=== PATIENT | male | born 1955 | race Hispanic/Latino ===

== ENCOUNTER 2018-10-27 19:06 | Inpatient (IN) | payer BC ==
--- NOTE | 2018-10-27 19:25 | Emergency Department Report ---
Chief Complaint: Arrhythmia/Palpitations Stated Complaint: IRREGULAR HEART Time Seen by Provider: 10/27/18 19:20 - HPI History of Present Illness: Pt presents with Afib with RVR sent by [facility] denies any prior hx of Afib no CP (+) palpitations no SOB HR 123 EKG with sinus tach MSE screening note: Focused history performed Due to findings the following was ordered: labs, EKG
[2018-10-27 19:54] LABS: Basophils % (Auto) 0.6 % (0.0-1.8); Eosinophils # (Auto) 0.1 K/mm3 (0.0-0.4); Eosinophils % (Auto) 1.2 % (0.0-4.3); Hemoglobin 14.6 gm/dl (11.8-15.2); Lymphocytes # (Auto) 2.6 K/mm3 (1.2-5.4); Lymphocytes % (Auto) 33.4 % (13.4-35.0); Mean Corpuscular HGB Conc 35 % (32-34); Mean Corpuscular Volume 87 fl (84-94); Monocytes # (Auto) 0.5 K/mm3 (0.0-0.8); Monocytes % (Auto) 6.4 % (0.0-7.3); Platelet Count 281 K/mm3 (140-440); Red Blood Count 4.84 M/mm3 (3.65-5.03); Red Cell Distribution Width 13.6 % (13.2-15.2)
[2018-10-27 20:28] LABS: Alanine Aminotransferase 38 units/L (7-56); Albumin 4.3 g/dL (3.9-5); BUN/Creatinine Ratio 13; Blood Urea Nitrogen 10 mg/dL (9-20); Hemolysis Index 7
[2018-10-27] MEDS ORDERED: NACL 0.9% 500 ML 500 ML IV ONE (20:34)
--- NOTE | 2018-10-27 21:17 | Emergency Department Report ---
ED Palpitations HPI - General Chief Complaint: Arrhythmia/Palpitations Stated Complaint: IRREGULAR HEART Time Seen by Provider: 10/27/18 19:20 Source: patient Mode of arrival: Ambulatory Limitations: No Limitations - History of Present Illness Initial Comments: 63-year-old male with a past medical history of diabetes, hypertension, and plaque psoriasis presents to the hospitalist and the building construction teacher's office to be admitted for workup of new onset A. fib with RVR. Patient apparently went to his PMDs office for a checkup and medical refill and was noted to be in A. fib rate 165 (see ekg on chart and office notes). Patient denies any symptoms incl uding chest pain, shortness of breath, palpitations, fevers, or lightheadedness. Patient also denies history of PEs as DVT, calf tenderness, leg edema, or recent travel. PMD Dr. Bennett building construction teacher: Dr. Batista with [facility] - Related Data Allergies Allergy/AdvReac Type Severity Reaction Status Date / Time No Known Allergies Allergy Unverified 10/27/18 19:16 ED Review of Systems ROS: Stated complaint: IRREGULAR HEART Other details as noted in HPI Comment: All other systems reviewed and negative ED Past Medical Hx - Past Medical History Hx Hypertension: Yes Hx Diabetes: Yes (pre) Additional medical history: plaque psoriasis - Surgical History Past Surgical History?: No - Social History Smoking Status: Never Smoker Substance Use Type: None ED Physical Exam - General Limitations: No Limitations - Other Other exam information: General: No limitations, patient is alert in no acute distress Head exam: Atraumatic, normocephalic Eyes exam: Normal appearanc e ENT: Moist mucous membrane, normal oropharynx Neck exam: Normal inspection, full range of motion, no meningismus nontender Respiratory exam: Clear to auscultation bilateral, no wheezes, rales, crackles Cardiovascular: Mild tachycardia with regular rhythm Abdomen: Soft, nondistended, and nontender, with normal bowel sounds, no rebound, or guarding Extremity: Full range of motion normal inspection no deformity, no calf tenderness or edema Back: Normal Inspection, full range of motion, no tenderness Neurologic: Alert, oriented x3, cranial nerves intact, no motor or sensory deficit Psychiatric: normal affect, normal mood Skin: Warm, dry, intact ED Course Vital Signs 10/27/18 10/27/18 10/27/18 19:18 19:21 21:00 Temperature 98.1 F 98.1 F Pulse Rate 124 H 123 H 88 Respiratory 18 18 19 Rate Blood Pressure 139/89 139/89 121/68 Blood Pressure [Left] O2 Sat by Pulse 95 94 96 Oximetry 10/27/18 10/27/18 21:44 23:06 Temperature Pulse Rate 71 Respiratory 16 16 Rate Blood Pressure Blood Pressure 113/74 [Left] O2 Sat by Pulse 99 100 Oximetry - Reevaluation(s) Reevaluation #1: 10/27/18 23:28 hr improved below 100 after IVF repeat ekg pending to reassess rhythm pt informed of ct chest any suggestive of metastatic lung cancer. Reevaluation #2: 10/27/18 23:32 PT pmd paged x [address] result. will discuss with pmd if he calls back tonight. He does not admit. Hospitalist informed for admission ED Medical Decision Making - Lab Data Result diagrams: 10/27/18 19:41 10/27/18 19:41 Lab Results 10/27/18 10/27/18 10/27/18 Range/Units 19:41 19:41 19:41 WBC 7.8 (4.5-11.0) K/mm3 RBC 4.84 (3.65-5.03) M/mm3 Hgb 14.6 (11.8-15.2) gm/dl Hct 42.0 (35.5-45.6) % MCV 87 (84-94) fl MCH 30 (28-32) pg MCHC 35 H (32-34) % RDW 13.6 (13.2-15.2) % Plt Count 281 (140-440) K/mm3 Lymph % (Auto) 33.4 (13.4-35.0) % [place] % (Auto) 6.4 (0.0-7.3) % Eos % (Auto) 1.2 (0.0-4.3) % Baso % (Auto) 0.6 (0.0-1.8) % Lymph # 2.6 (1.2-5.4) K/mm3 [place] # 0.5 (0.0-0.8) K/mm3 Eos # 0.1 (0.0-0.4) K/mm3 Baso # 0.0 (0.0-0.1) K/mm3 Seg Neutrophils % 58.4 (40.0-70.0) % Seg Neutrophils # 4.6 (1.8-7.7) K/mm3 D-Dimer (0-234) ng/mlDDU Sodium 137 (137-145) mmol/L Potassium 4.1 (3.6-5.0) mmol/L Chloride 98.9 (98-107) mmol/L Carbon Dioxide 27 (22-30) mmol/L Anion Gap 15 mmol/L BUN 10 (9-20) mg/dL Creatinine 0.8 (0.8-1.5) mg/dL Estimated GFR > 60 ml/min BUN/Creatinine Ratio 13 % Glucose 209 H (75-100) mg/dL Calcium 9.0 (8.4-10.2) mg/dL Phosphorus 3.30 (2.5-4.5) mg/dL Magnesium 2.20 (1.7-2.3) mg/dL Total Bilirubin 0.90 (0.1-1.2) mg/dL AST 34 (5-40) units/L ALT 38 (7-56) units/L Alkaline Phosphatase 98 (35-129) units/L Troponin T < 0.010 (0.00-0.029) ng/mL NT-Pro-B Natriuret Pep (0-900) pg/mL Total Protein 7.4 (6.3-8.2) g/dL Albumin 4.3 (3.9-5) g/dL Albumin/Globulin Ratio 1.4 % TSH 1.280 (0.270-4.200) mlU/mL 10/27/18 10/27/18 Range/Units 19:41 19:41 WBC (4.5-11.0) K/mm3 RBC (3.65-5.03) M/mm3 Hgb (11.8-15.2) gm/dl Hct (35.5-45.6) % MCV (84-94) fl MCH (28-32) pg MCHC (32-34) % RDW (13.2-15.2) % Plt Count (140-440) K/mm3 Lymph % (Auto) (13.4-35.0) % [place] % (Auto) (0.0-7.3) % Eos % (Auto) (0.0-4.3) % Baso % (Auto) (0.0-1.8) % Lymph # (1.2-5.4) K/mm3 [place] # (0.0-0.8) K/mm3 Eos # (0.0-0.4) K/mm3 Baso # (0.0-0.1) K/mm3 Seg Neutrophils % (40.0-70.0) % Seg Neutrophils # (1.8-7.7) K/mm3 D-Dimer 429.54 H (0-234) ng/mlDDU Sodium (137-145) mmol/L Potassium (3.6-5.0) mmol/L Chloride (98-107) mmol/L Carbon Dioxide (22-30) mmol/L Anion Gap mmol/L BUN (9-20) mg/dL Creatinine (0.8-1.5) mg/dL Estimated GFR ml/min BUN/Creatinine Ratio % Glucose (75-100) mg/dL Calcium (8.4-10.2) mg/dL Phosphorus (2.5-4.5) mg/dL Magnesium (1.7-2.3) mg/dL Total Bilirubin (0.1-1.2) mg/dL AST (5-40) units/L ALT (7-56) units/L Alkaline Phosphatase (35-129) units/L Troponin T (0.00-0.029) ng/mL NT-Pro-B Natriuret Pep 72.97 (0-900) pg/mL Total Protein (6.3-8.2) g/dL Albumin (3.9-5) g/dL Albumin/Globulin Ratio % TSH (0.270-4.200) mlU/mL - EKG Data -: EKG Interpreted by Ok EKG shows normal: sinus rhythm, axis (qrs -32), QRS complexes (qrsd 96), ST-T waves (no stemi) Rate: tachycardia (115) - EKG Data When compared to previous EKG there are: other (office ekg afb rate 165) 10/27/18 23:40 repeat EKG shows sinus rhythm rate [address] elevation or T-wave inversions. - Radiology Data Radiology results: report reviewed PROCEDURE: CT ANGIOGRAM OF THE CHEST FOR PULMONARY EMBOLISM TECHNIQUE: Computerized axial tomographic angiography of the chest and pulmonary arteries was performed during the IV injection of iodinated nonionic contrast. The image data was postprocessed using maximum intensity projection (MIP) and 2- dimensional multiplanar reformatted (MPR) techniques. The examination is specifically tailored to the evaluation of the pulmonary arteries per clinical request. Automated exposure control, adjustment of mA and/or kV according to patient size, or iterative reconstruction dose optimization techniques were utilized. CPT G9637, 67572 HISTORY: Shortness of breath R06.02, chest pain unspecified R07.9 ,. Evaluate pulmonary embolus COMPARISONS: None . FINDINGS: Pulmonary out flow tract, right and left main pulmonary arteries and the approximal branches: Clear, no filling defects seen to suggest pulmonary embolus. Pericardium: No evidence of pericardial effusion. Thoracic aorta: No evidence of aneurysmal dilatation or dissection. Coronary arteries: Partially calcified indicating atherosclerotic disease. Mediastinum and hilar regions: There are a few noncalcified lymph nodes seen in the left hilum which appear moderately enlarged, the largest measures up to 2.5 x 2.0 cm suggesting metastatic disease to the left hilum. Lung Negron: There are 2 spiculated soft tissue masses in the left upper lobe medially. One measures 2.8 x 2.4 cm tightly applied to the left side of the upper mediastinum. This has spiculated margins and is noncalcified. This is seen on axial image 30 series 2. This is connected to a second soft tissue mass superior aspect of the left hilum measuring 2.0 x 2.0 cm seen on axial image 44 series 2. There are multiple small noncalcified peripheral nodular densities scattered in the right and left lungs measuring up to 1 cm in size suggesting metastatic disease. No effusions are identified. There is minimal dependent atelectasis. Mild to moderate emphysematous changes seen in the upper lung negron. Upper abdomen: Liver density is diffusely decreased consistent with fatty infiltration. There appear to be several masses in the left lobe of the liver adjacent to the right and left side of the falci form ligament. The largest measures 6.4 x 5.8 cm along the left side of the falciform ligament. 2 additional masses are seen on the right side of the falciform ligament, one measuring 4.8 cm greatest diameter and the other 2.6 cm and one located in the right lobe of the liver measuring approximately 2.1 cm. Metastatic disease to the liver is suspected. Other: No acute bone abnormalities are seen.. IMPRESSION: No evidence of pulmonary embolus. Spiculated soft tissue masses seen in the left upper lobe as well as left hilar adenopathy and masses in the liver as described. Multiple small peripheral noncalcified nodules seen scattered in both lungs as described suggesting additional metastasis to the right and left lungs. Primary malignancy in the lung is suspected with met astatic disease to left hilar lymph nodes and to the liver. Fatty infiltration of the liver. Atherosclerosis coronary arteries. - Medical Decision Making Patient presents to the ER with a regular rhythm and improved heart rate without any documented meds for rate control given prior to arrival. further improvement in rate with IVf Card consult ordered but not discussed with cardiology repeat ekg shows sinus rhythm rate 70 - Differential Diagnosis new A. fib, thyroid disease, anemia, dehydration, PE Critical Care Time: No Critical care attestation.: If time is entered above; I have spent that time in minutes in the direct care of this critically ill patient, excluding procedure time. ED Disposition Clinical Impression: Intermittent atrial fibrillation, Lung mass, Liver masses, Diabetes, HTN (hypertension), Plaque psoriasis Disposition: -09 OP ADMIT IP TO THIS HOSP Is pt being admited?: Yes Condition: Stable Time of Disposition: 23:32 (Dr Malhotra/hosp)
--- NOTE | 2018-10-27 23:19 | Cat Scan Report ---
PROCEDURE: CT ANGIOGRAM OF THE CHEST FOR PULMONARY EMBOLISM TECHNIQUE: Computerized axial tomographic angiography of the chest and pulmonary arteries was perfor med during the IV injection of iodinated nonionic contrast. The image data was postprocessed using ma ximum intensity projection (MIP) and 2-dimensional multiplanar reformatted (MPR) techniques. The exam ination is specifically tailored to the evaluation of the pulmonary arteries per clinical request. A utomated exposure control, adjustment of mA and/or kV according to patient size, or iterative reconst ruction dose optimization techniques were utilized. CPT G9637, 39113 HISTORY: Shortness of breath R06.02, chest pain unspecified R07.9 ,. Evaluate pulmonary embolus COMPARISONS: None . FINDINGS: Pulmonary out flow tract, right and left main pulmonary arteries and the approximal branches: Clear, no filling defects seen to suggest pulmonary embolus. Pericardium: No evidence of pericardial effusion. Thoracic aorta: No evidence of aneurysmal dilatation or dissection. Coronary arteries: Partially calcified indicating atherosclerotic disease. Mediastinum and hilar regions: There are a few noncalcified lymph nodes seen in the left hilum which appear moderately enlarged, the largest measures up to 2.5 x 2.0 cm suggesting metastatic disease to the left hilum. Lung Johnson: There are 2 spiculated soft tissue masses in the left upper lobe medially. One measures 2.8 x 2.4 cm tightly applied to the left side of the upper mediastinum. This has spiculated margins a nd is noncalcified. This is seen on axial image 30 series 2. This is connected to a second soft tissu e mass superior aspect of the left hilum measuring 2.0 x 2.0 cm seen on axial image 44 series 2. Ther e are multiple small noncalcified peripheral nodular densities scattered in the right and left lungs measuring up to 1 cm in size suggesting metastatic disease. No effusions are identified. There is min imal dependent atelectasis. Mild to moderate emphysematous changes seen in the upper lung johnson. Upper abdomen: Liver density is diffusely decreased consistent with fatty infiltration. There appear to be several masses in the left lobe of the liver adjacent to the right and left side of the falcif orm ligament. The largest measures 6.4 x 5.8 cm along the left side of the falciform ligament. 2 carroll tional masses are seen on the right side of the falciform ligament, one measuring 4.8 cm greatest ritu meter and the other 2.6 cm and one located in the right lobe of the liver measuring approximately 2.1 cm. Metastatic disease to the liver is suspected. Other: No acute bone abnormalities are seen.. IMPRESSION: No evidence of pulmonary embolus. Spiculated soft tissue masses seen in the left upper lobe as well as left hilar adenopathy and masses in the liver as described. Multiple small peripheral noncalcified nodules seen scattered in both nayana gs as described suggesting additional metastasis to the right and left lungs. Primary malignancy in t he lung is suspected with metastatic disease to left hilar lymph nodes and to the liver. Fatty infiltration of the liver. Atherosclerosis coronary arteries. This document is electronically signed by Richard Amaya MD., October 27 2018 11:17:04 PM ET
--- NOTE | 2018-10-27 23:53 | History and Physical Report ---
History of Present Illness Date of examination: 10/27/18 History of present illness: 63-year-old man with a history of hypertension, diabetes, psoriasis went to his care physician today for medication refill. The patient was found to be in A. fib with RVR and was then sent to the sort line office who sent him here to the emergency room for further evaluation. The patient has been asymptomatic. Patient is now in normal sinus rhythm. He denies weight loss or chest pain, palpitation Review of systems Constitutional: no weight loss, chills, fever Ears, eyes, nose, mouth and throat: no nasal congestion, no nasal discharge, no sinus pressure, no vision change, no red eye. Neck: No neck pain or rigidity. Cardiovascular: no palpitations, chest pain Respiratory: no cough, shortness of breath Gastrointestinal: no hematochezia, abdominal pain Genitourinary : no frequency , no hematuria Musculoskeletal: no joint swelling or muscle ache Integumentary: no rash, no pruritis Neurological: no parathesias, no focal weakness Endocrine: no cold or heat intolerance, no polyuria or polydipsia Hematologic/Lymphatic: no easy bruising, no easy bleeding, no gland swelling Allergic/Immunologic: no urticaria, no angioedema. PAST MEDICAL HISTORY:hypertension, diabetes, psoriasis PAST SURGICAL HISTORY: None SOCIAL HISTORY: Denies alcohol, drugs, quit tobacco 10 years ago, used to smoke 2 packs a day FAMILY HISTORY: Hypertension Medications and Allergies Allergies Allergy/AdvReac Type Severity Reaction Status Date / Time No Known Allergies Allergy Verified 10/28/18 00:03 Exam - Physical Exam Narrative exam: General Apperance: The patient lying in bed, breathing comfortable HEENT: Normocephalic, atraumatic. Pupils equally round and reactive to light, EOMI, no sclericterus or JVD or thyromegaly or nodule. , no carotid bruit, mucous membranes moist, no exudate or erythema Heart: S1-S2, regular is rhythm Lungs: Clear to auscultation bilaterally, breathing comfortable Abdomen: Positive bowel sounds, soft, nontender, nondistended, no organomegaly Extremities: No edema cyanosis clubbing Skin: no rash, nodule, warm and dry Neuro: cranial nerves 2-12 intact, speech is fluent, motor/sensory intact - Constitutional Vitals: Temp Pulse Resp BP Pulse Ox 98.1 F 71 16 113/74 100 04/15/19 19:21 10/27/18 23:06 10/27/18 23:06 10/27/18 23:06 10/27/18 23:06 Results - Labs CBC & Chem 7: 10/27/18 19:41 10/27/18 19:41 Labs: Abnormal lab results 10/27/18 10/27/18 10/27/18 Range/Units 19:41 19:41 19:41 MCHC 35 H (32-34) % D-Dimer 429.54 H (0-234) ng/mlDDU Glucose 209 H (75-100) mg/dL - Imaging and Cardiology CT scan - chest: report reviewed Assessment and Plan Assessment New onset A. fib Lung mass with metastases most likely cancer Hypertension Diabetes Psoriasis Plan Admit to medicine Check cardiac enzymes, echo, consult cardiology Consult oncology, hold aspirin pending biopsy Check fingersticks and initiate insulin sliding scale DVT prophylaxis
[2018-10-28] MEDS ORDERED: ZOFRAN IV PRN (00:05)
[2018-10-28] MEDS ORDERED: TYLENOL PO PRN (00:05)
[2018-10-28] MEDS ORDERED: PERCOCET 5/325 PO PRN (00:05)
[2018-10-28] MEDS ORDERED: SODIUM CHLORIDE FLUSH SYRINGE 10 ML IV PRN (00:05)
[2018-10-28] MEDS ORDERED: D50W (25GM) Syringe IV PRN (00:16)
[2018-10-28 01:08] LABS: Creatine Kinase MB 5.5 ng/mL (0.0-4.0)
[2018-10-28 06:16] LABS: Basophils % (Auto) 0.2 % (0.0-1.8); Eosinophils # (Auto) 0.2 K/mm3 (0.0-0.4); Eosinophils % (Auto) 2.5 % (0.0-4.3); Hematocrit 38.8 % (35.5-45.6); Hemoglobin 13.2 gm/dl (11.8-15.2); Lymphocytes # (Auto) 2.6 K/mm3 (1.2-5.4); Lymphocytes % (Auto) 37.2 % (13.4-35.0); Mean Corpuscular HGB Conc 34 % (32-34); Mean Corpuscular Volume 88 fl (84-94); Monocytes # (Auto) 0.8 K/mm3 (0.0-0.8); Platelet Count 257 K/mm3 (140-440); Red Cell Distribution Width 13.9 % (13.2-15.2)
[2018-10-28 06:35] LABS: BUN/Creatinine Ratio 13; Blood Urea Nitrogen 9 mg/dL (9-20); Calcium 8.9 mg/dL (8.4-10.2); Hemolysis Index 7
[2018-10-28 06:45] LABS: Creatine Kinase MB 5.8 ng/mL (0.0-4.0)
[2018-10-28] MEDS: HumaLOG SUB-Q SCH ×4 (07:47→22:00)
--- NOTE | 2018-10-28 11:32 | Cat Scan Report ---
CT HEAD WITH AND WITHOUT CONTRAST: HISTORY: Lung mass, liver mass, evaluate for metastatic disease. Serial contiguous axial images were obtained through the cranium, both before and after the administration of intravenous contrast material. The ventricles are normal in size and appearance. There is no mass effect or midline shift. No areas of abnormally increased or decreased attenuation are seen. No mass lesion is seen. The mastoid air cells and visualized portions of the sinuses are normal. IMPRESSION: Cranial CT scan within normal limits.
--- NOTE | 2018-10-28 11:41 | Cat Scan Report ---
CT ABDOMEN PELVIS WITH CONTRAST: HISTORY: Lung mass, liver metastases. COMPARISON: none. TECHNIQUE: Helical CT in 1.25mm intervals following IV contrast. Sagittal and coronal reconstructions. FINDINGS: Liver: There is moderate diffuse fatty infiltration throughout the liver. No enlargement or surface nodularity. Multiple liver masses are identified. A 2.6 cm enhancing mass is identified in the right hepatic lobe. There are 3 masses in the left hepatic lobe measuring 5.0 cm, 5.8 cm, and 3.7 cm. Biliary system: Normal. Pancreas: Normal. Spleen: Normal. Kidneys/ureters/bladder: Normal. Adrenal glands: Normal. Aorta: Mild distal calcifications. No aneurysm, dissection or stenosis. Intestines: Within normal limits. No GI mass, obstruction or inflammation is identified. Appendix: Normal. Ascites: None. Adenopathy: None. Musculoskeletal: There is diffuse sclerosis of the L3 and L5 vertebral bodies suggesting metastatic lesions. A transverse fracture is identified in the left L5 transverse process, age indeterminate. The remaining bony structures are unremarkable. IMPRESSION: Four suspicious liver masses are identified consistent with metastatic disease. Moderate diffuse fatty infiltration of the liver parenchyma. Diffuse sclerosis of the L3 and L5 vertebral bodies suggesting metastatic disease. Pathologic fracture of the left L5 transverse process. No acute inflammatory process is appreciated in the abdomen.
[2018-10-28] MEDS: LOVENOX SUB-Q SCH (14:44)
[2018-10-28] MEDS: NORVASC PO SCH (14:45)
[2018-10-28] MEDS: SODIUM CHLORIDE FLUSH SYRINGE 10 ML IV SCH ×2 (14:45→22:00)
[2018-10-28] MEDS: ZESTRIL PO SCH (14:45)
--- NOTE | 2018-10-28 14:57 | Progress Note ---
Assessment and Plan New onset A. fib, NSR now - follow cardiac enzymes, follow echo, consult cardiology - did not start AC as NSR now and also pending biopsy, will follow cardiology result Lung mass with metastases most likely cancer - incidental finding - Consulted oncology, hold aspirin/AC pending biopsy - planned for possible biopsy tomorrow Hypertension, cont home meds, stable Diabetes type 2, consistent carb diet, SSI Psoriasis, no acute issue DVT prophylaxis, lovenox Brief history: 63-year-old male with a past medical history of diabetes, hypertension, and plaque psoriasis who apparently went to his PMDs office for a checkup and medical refill and was noted to be in A. fib rate 165 (see ekg on chart and office notes). He was send to ER to be admitted for workup of new onset A. fib with RVR. PMD Dr. Bennett; personal care service provider: [facility]. Batista with [facility]. CTA chest in the Er showed b/l multiple lung and hepatic nodules, oncology consulted. Subjective Date of service: 10/28/18 Interval history: Patient seen and examined Denies any chest pain or SOB tolerating diet, noted NSR on tele Objective - Constitutional Vitals: Vital Signs - 12hr 10/28/18 10/28/18 10/28/18 04:06 08:43 10:00 Temperature 98.0 F 97.9 F Pulse Rate 66 74 86 Respiratory 18 20 Rate Blood Pressure 115/63 125/71 O2 Sat by Pulse 94 92 Oximetry General appearance: Present: no acute distress, well-nourished - EENT Eyes: PERRL, EOM intact ENT: hearing intact, clear oral mucosa Ears: bilateral: normal - Neck Neck: supple, normal ROM - Respiratory Respiratory effort: normal Respiratory: bilateral: CTA - Cardiovascular Rhythm: regular Heart Sounds: Present: S1 & S2. Absent: gallop, rub Extremities: pulses intact, No edema, normal color, Full ROM - Gastrointestinal General gastrointestinal: Present: soft, non-tender, non-distended, normal bowel sounds - Integumentary Integumentary: clear, warm, dry - Musculoskeletal Musculoskeletal: 1, strength equal bilaterally - Neurologic Neurologic: moves all extremities - Psychiatric Psychiatric: memory intact, appropriate mood/affect, intact judgment & insight - Labs CBC & Chem 7: 10/28/18 05:45 10/29/18 08:42 Labs: Abnormal lab results 04/15/19 04/15/19 04/15/19 Range/Units 19:41 19:41 19:41 MCHC 35 H (32-34) % Lymph % (Auto) (13.4-35.0) % [place] % (Auto) (0.0-7.3) % D-Dimer 429.54 H (0-234) ng/mlDDU Creatinine (0.8-1.5) mg/dL Glucose 209 H (75-100) mg/dL Total Creatine Kinase (55-170) units/L CK-MB (CK-2) (0.0-4.0) ng/mL 10/28/18 10/28/18 10/28/18 Range/Units 00:31 05:45 05:45 MCHC (32-34) % Lymph % (Auto) 37.2 H (13.4-35.0) % [place] % (Auto) 12.0 H (0.0-7.3) % D-Dimer (0-234) ng/mlDDU Creatinine 0.7 L (0.8-1.5) mg/dL Glucose 130 H (75-100) mg/dL Total Creatine Kinase 224 H (55-170) units/L CK-MB (CK-2) 5.5 H (0.0-4.0) ng/mL 10/28/18 Range/Units 05:45 MCHC (32-34) % Lymph % (Auto) (13.4-35.0) % [place] % (Auto) (0.0-7.3) % D-Dimer (0-234) ng/mlDDU Creatinine (0.8-1.5) mg/dL Glucose (75-100) mg/dL Total Creatine Kinase 197 H (55-170) units/L CK-MB (CK-2) 5.8 H (0.0-4.0) ng/mL
--- NOTE | 2018-10-28 22:22 | Event Note ---
Date: 10/28/18 [id number]
--- NOTE | 2018-10-29 07:43 | Hem/Onc Progress Note ---
Assessment and Plan Lung lesions liver lesions A fib DM HTN psoarisis - on Humira liver bx OP follow up d/w pt that this may be neoplastic process - Patient Problems (1) Liver masses Status: Acute Subjective Date of service: 10/29/18 Principal diagnosis: live and lung lesion Interval history: bx of liver Objective - Constitutional Vitals: Last Vital Signs Temp 98.2 F 10/28/18 16:45 Pulse 62 10/29/18 02:00 Resp 18 10/28/18 16:45 BP 124/77 10/28/18 16:45 Pulse Ox 92 10/28/18 16:45 Pain Intensity (0-10): denies any pain General appearance: no acute distress Performance status: 2- selfcare, ambulatory - EENT Eyes: EOM intact ENT: clear oral mucosa Lymph node exam: negative cervical - Neck Neck: normal ROM - Respiratory Respiratory effort: Positive: normal Respiratory: bilateral: CTA - Cardiovascular Heart Sounds: Present: S1 & S2 Extremities: No edema - Gastrointestinal General gastrointestinal: Present: soft, non-tender Rectal Exam: deferred - Genitourinary Male genitourinary: Present: deferred - Integumentary Integumentary: warm - Musculoskeletal Musculoskeletal: strength equal bilaterally - Neurologic Neurologic: moves all extremities - Labs Lab Results: Laboratory Results - last 24 hr 10/29/18 10/29/18 00:28 05:32 POC Glucose 105 Prostate Specific Ag 0.50 Medications & Allergies - Medications Allergies/Adverse Reactions: Allergies No Known Allergies Allergy (Verified 10/28/18 00:03) Home Medications: Home Medications Medication Instructions Recorded Confirmed Last Taken Type Lisinopril [Zestril] 10 mg PO DAILY 10/28/18 10/28/18 10/27/18 History amLODIPine [Norvasc] 5 mg PO DAILY 10/28/18 10/28/18 10/27/18 History metFORMIN [Glucophage] 500 mg PO BID 10/28/18 10/28/18 10/27/18 History Apixaban [Eliquis] 5 mg PO Q12HR #60 tablet 10/30/18 Unknown Rx Metoprolol Xl [Metoprolol 50 mg PO QDAY #30 tablet 10/30/18 Unknown Rx SUCCINATE ER TAB] Active Medications: Generic Name Dose Route Start Last Admin Trade Name Freq PRN Reason Stop Dose Admin Acetaminophen 650 mg 10/28/18 00:05 Tylenol PO Q4H PRN Pain MILD(1-3)/Fever >100.5/PAT Amlodipine Besylate 5 mg 10/28/18 10:00 10/28/18 14:45 Norvasc PO 5 mg DAILY JOHANN Administration Dextrose 50 ml 10/28/18 00:16 D50w (25gm) Syringe IV PRN PRN Hypoglycemia Enoxaparin Sodium 40 mg 10/28/18 10:00 10/28/18 14:44 Lovenox SUB-Q 40 mg QDAY JOHANN Administration Insulin Human Lispro 0 unit 10/28/18 07:30 10/28/18 22:00 Humalog SUB-Q Not Given ACHS [facility] Protocol Lisinopril 10 mg 10/28/18 10:00 10/28/18 14:45 Zestril PO 10 mg DAILY JOHANN Administration Ondansetron HCl 4 mg 10/28/18 00:05 Zofran IV Q8H PRN Nausea And Vomiting Oxycodone/Acetaminophen 1 tab 10/28/18 00:05 Percocet 5/325 PO Q6H PRN Pain, Moderate (4-6) Sodium Chloride 10 ml 10/28/18 10:00 10/28/18 22:00 Sodium Chloride Flush Syringe 10 Ml IV 10 ml BID JOHANN Administration Sodium Chloride 10 ml 10/28/18 00:05 Sodium Chloride Flush Syringe 10 Ml IV PRN PRN LINE FLUSH
--- NOTE | 2018-10-29 08:09 | Consultation ---
Referred by Dr. Monge. REASON FOR CONSULTATION: Lung mass, liver lesion. HISTORY OF PRESENT ILLNESS: I saw the patient, a 63-year-old male in the medical floor. He has a history of hypertension, diabetes, psoriasis. He went to his primary care and was found to have fibrillation with rapid heart rate. He was seen by the Cardiology team and he was admitted to Hospital for same. During this admission, Radiology showed lung and liver lesions. I have been asked to evaluate the patient. The patient is an ex-smoker, quit 10 years ago. At this time, no headache, no visual disturbances. No ear discharge, no chest pain, no palpitations. He had atrial fibrillation with RVR at admission. No history of weight loss. REVIEW OF SYSTEMS: No hematemesis, no hematochezia. No fever. PAST MEDICAL HISTORY: As above. PAST SURGICAL HISTORY: None. SOCIAL HISTORY: No history of active tobacco or alcohol usage. History of ex-tobacco usage. FAMILY HISTORY: Hypertension. ALLERGIES: None. MEDICATIONS: Include Zofran, Percocet, insulin, amlodipine, lisinopril, and Lovenox. PHYSICAL EXAMINATION: VITAL SIGNS: On examination, temperature 98, pulse 72, respirations 18, and BP 124/77. HEENT: No pallor, no icterus. NECK: No neck lymph nodes. HEART: S1, S2. LUNGS: Clear to auscultation. ABDOMEN: Soft. EXTREMITIES: No calf tenderness. NEUROLOGIC: Alert, awake, oriented. LABORATORY DATA: CT chest shows spiculated soft tissue mass, left upper lobe as well as left hilar adenopathy and liver masses, the largest was 6.4 cm, metastasis to the liver suspected. ASSESSMENT AND PLAN: 1. Lung lesion. 2. Liver lesion. 3. History of atrial fibrillation with rapid ventricular response. 4. I discussed with the patient that we are suspecting a neoplastic process. I discussed with him regarding tumor markers, liver biopsy. We will do radiology of head and follow the patient. 5. History of diabetes. 6. History of hypertension. 7. History of psoriasis. 8. Atrial fibrillation. 9. I will follow the patient during inpatient stay. JOB# [id number] NM/NTS
[2018-10-29 09:12] LABS: BUN/Creatinine Ratio 14; Blood Urea Nitrogen 10 mg/dL (9-20); Calcium 9.1 mg/dL (8.4-10.2); Hemolysis Index 21
[2018-10-29 09:21] LABS: INR 0.92 (0.87-1.13)
[2018-10-29] MEDS: LOVENOX SUB-Q SCH (10:41)
[2018-10-29] MEDS ORDERED: VERSED IV ONE ×2 (10:42→11:19)
[2018-10-29] MEDS ORDERED: SUBLIMAZE ONE (10:42)
[2018-10-29] MEDS: ZESTRIL PO SCH (10:45)
[2018-10-29] MEDS: NORVASC PO SCH (10:45)
[2018-10-29] MEDS: SODIUM CHLORIDE FLUSH SYRINGE 10 ML IV SCH ×2 (10:46→22:39)
[2018-10-29] MEDS ORDERED: SUBLIMAZE IV ONE (11:19)
[2018-10-29] MEDS: HumaLOG SUB-Q SCH ×4 (11:35→22:35)
--- NOTE | 2018-10-29 11:41 | Consultation ---
History of Present Illness Consult date: 10/29/18 Consult reason: atrial fibrillation History of present illness: 63 year old male presenting with afib with RVR to the office. He was admitted to the hospital for rate/rhythm control. He is currently in SR Incidentally CT chest is showing evidence of what looks like lung cancer with liver and mediastinal mets. Patient quit smoking 10-12 years ago. Past History Past Medical History: atrial fib, diabetes, hypertension Past Surgical History: No surgical history Social history: other (Former smoker) Family history: other (Atrial fibrillation in father) Medications and Allergies Allergies Allergy/AdvReac Type Severity Reaction Status Date / Time No Known Allergies Allergy Verified 10/28/18 00:03 Home Medications Medication Instructions Recorded Confirmed Last Taken Type Lisinopril [Zestril] 10 mg PO DAILY 10/28/18 10/28/18 10/27/18 History amLODIPine [Norvasc] 5 mg PO DAILY 10/28/18 10/28/18 10/27/18 History metFORMIN [Glucophage] 500 mg PO BID 10/28/18 10/28/18 10/27/18 History Active Meds: Active Medications Acetaminophen (Tylenol) 650 mg PO Q4H PRN PRN Reason: Pain MILD(1-3)/Fever >100.5/PAT Amlodipine Besylate (Norvasc) 5 mg PO DAILY [facility] Last Admin: 10/28/18 14:45 Dose: 5 mg Documented by: Dextrose (D50w (25gm) Syringe) 50 ml IV PRN PRN PRN Reason: Hypoglycemia Enoxaparin Sodium (Lovenox) 40 mg SUB-Q QDAY [facility] Last Admin: 10/28/18 14:44 Dose: 40 mg Documented by: Insulin Human Lispro (Humalog) 0 unit SUB-Q [facility]; Protocol Last Admin: 10/28/18 22:00 Dose: Not Given Documented by: Lisinopril (Zestril) 10 mg PO DAILY [facility] Last Admin: 10/28/18 14:45 Dose: 10 mg Documented by: Ondansetron HCl (Zofran) 4 mg IV Q8H PRN PRN Reason: Nausea And Vomiting Oxycodone/Acetaminophen (Percocet 5/325) 1 tab PO Q6H PRN PRN Reason: Pain, Moderate (4-6) Sodium Chloride (Sodium Chloride Flush Syringe 10 Ml) 10 ml IV BID [facility] Last Admin: 10/28/18 22:00 Dose: 10 ml Documented by: Sodium Chloride (Sodium Chloride Flush Syringe 10 Ml) 10 ml IV PRN PRN PRN Reason: LINE FLUSH Review of Systems All systems: negative Physical Examination Vital Signs Temp Pulse Resp BP Pulse Ox 98.1 F 124 H 18 139/89 95 10/27/18 19:18 10/27/18 19:18 10/27/18 19:18 10/27/18 19:18 10/27/18 19:18 General appearance: no acute distress HEENT: Positive: PERRL Neck: Positive: neck supple Cardiac: Positive: Reg Rate and Rhythm Lungs: Positive: Normal Exam Neuro: Positive: Grossly Intact Abdomen: Positive: Soft Male genitourinary: Positive: deferred Extremities: Present: normal Results 10/28/18 05:45 10/29/18 08:42 Coagulation 10/29/18 Range/Units 08:42 PT 12.9 (12.2-14.9) Sec. INR 0.92 (0.87-1.13) Comprehensive Metabolic Panel 10/29/18 Range/Units 08:42 Sodium 138 (137-145) mmol/L Potassium 4.6 (3.6-5.0) mmol/L Chloride 101.9 (98-107) mmol/L Carbon Dioxide 28 (22-30) mmol/L BUN 10 (9-20) mg/dL Creatinine 0.7 L (0.8-1.5) mg/dL Glucose 135 H (75-100) mg/dL Calcium 9.1 (8.4-10.2) mg/dL - EKG Interpretation EKG: sinus rhythm EKG interpretations - Telemetry EKG Rhythm: Sinus Rhythm Assessment and Plan 1. Essential (primary) hypertension 2. Paroxysmal Atrial Fibrillation CHADSVASc = 2; therefore, will require anticoagulation Normal LVEF 3. Type 2 Diabetes Mellitus 4. 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
--- NOTE | 2018-10-29 11:59 | Progress Note ---
Assessment and Plan New onset paroxysmal A. fib, NSR now - Normal LVEF on 2d echo, consulted cardiology - did not start AC as NSR now and also pending biopsy, - Per cardiology CHADSVASc = 2; therefore, will require anticoagulation - Start toprol XL 50 mg po daily - Start OAC after lung biopsy of not other procedures or surgeries are planned Lung mass with metastases most likely cancer - incidental finding - Consulted oncology, hold aspirin/AC pending biopsy - planned for possible biopsy today Hypertension, cont home meds, stable Diabetes type 2, consistent carb diet, SSI Psoriasis, no acute issue DVT prophylaxis, lovenox Brief history: 63-year-old male with a past medical history of diabetes, hypertension, and plaque psoriasis who apparently went to his PMDs office for a checkup and medical refill and was noted to be in A. fib rate 165 (see ekg on chart and office notes). He was send to ER to be admitted for workup of new onset A. fib with RVR. PMD Dr. 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 Batista with [facility]. CTA chest in the Er showed b/l multiple lung and hepatic nodules, oncol kaitlin consulted. Subjective Date of service: 10/29/18 Interval history: Patient seen and examined Denies any chest pain or SOB tolerating diet, noted NSR on tele Objective - Exam Narrative Exam: General appearance: Present: no acute distress, well-nourished - EENT Eyes: PERRL, EOM intact ENT: hearing intact, clear oral mucosa Ears: bilateral: normal - Neck Neck: supple, normal ROM - Respiratory Respiratory effort: normal Respiratory: bilateral: CTA - Cardiovascular Rhythm: regular Heart Sounds: Present: S1 & S2. Absent: gallop, rub Extremities: pulses intact, No edema, normal color, Full ROM - Gastrointestinal General gastrointestinal: Present: soft, non-tender, non-distended, normal bowel sounds - Integumentary Integumentary: clear, warm, dry - Musculoskeletal Musculoskeletal: 1, strength equal bilaterally - Neurologic Neurologic: moves all extremities - Psychiatric Psychiatric: memory intact, appropriate mood/affect, intact judgment & insight - Constitutional Vitals: Vital Signs - 12hr 10/29/18 10/29/18 10/29/18 02:00 05:09 08:21 Temperature 98.4 F 98.2 F Pulse Rate 62 68 Pulse Rate [ Intra-Procedure ] Respiratory 18 18 Rate Respiratory Rate [Intra- Procedure] Blood Pressure 125/72 126/74 Blood Pressure [Intra- Procedure] O2 Sat by Pulse 94 Oximetry O2 Sat by Pulse Oximetry [ Intra-Procedure ] 10/29/18 10/29/18 11:34 11:47 Temperature Pulse Rate Pulse Rate [ 72 68 Intra-Procedure ] Respiratory Rate Respiratory 16 20 Rate [Intra- Procedure] Blood Pressure Blood Pressure 139/89 127/71 [Intra- Procedure] O2 Sat by Pulse Oximetry O2 Sat by Pulse 97 97 Oximetry [ Intra-Procedure ] - Labs CBC & Chem 7: 10/28/18 05:45 10/29/18 08:42 Labs: Abnormal lab results 10/29/18 10/29/18 Range/Units 08:16 08:42 Creatinine 0.7 L (0.8-1.5) mg/dL Glucose 135 H (75-100) mg/dL POC Glucose 119 H (70-105)
--- NOTE | 2018-10-29 14:00 | Cat Scan Report ---
CT BIOPSY LIVER History: Liver and pulmonary masses. Description of procedure: Informed consent was obtained. Sterile technique was utilized. Moderate sedation was accomplished with Versed and fentanyl. The patient was sedated for 20 minutes. Independent cardiorespiratory monitoring by RN. Intraobserver time of [address] guidance, a 17-gauge introducer needle was advanced to the leading edge of an approximate 6 cm left hepatic lobe mass. 2 separate 2.3 cm 18-gauge core biopsies were obtained for pathology. The samples were deemed adequate. Followup scan demonstrates no evidence for hemorrhage. The patient tolerated the procedure without difficulty. Impression: Successful CT-guided biopsy of a 6 cm left hepatic lobe mass.
[2018-10-29] MEDS: TOPROL XL PO SCH (18:45)
--- NOTE | 2018-10-30 07:32 | Hem/Onc Progress Note ---
Assessment and Plan #. Lung lesion likely primary #. Liver lesion likely mets. #. History of atrial fibrillation with rapid ventricular response. #. History of diabetes. #. History of hypertension. #. History of psoriasis. pt on humira Liver bx done tumor markers PSA normal - others pending OP follow up for path review and possible Rx - Patient Problems (1) Liver masses Current Visit: Yes Status: Acute Subjective Date of service: 10/30/18 Principal diagnosis: liver and lung lesion Interval history: s/p liver bx Objective - Constitutional Vitals: Last Vital Signs Temp 97.6 F 10/30/18 05:04 Pulse 59 L 10/30/18 05:04 Resp 20 10/30/18 05:04 BP 134/75 10/30/18 05:04 Pulse Ox 96 10/30/18 05:04 Pain Intensity (0-10): denies any pain General appearance: no acute distress Performance status: 2- selfcare, ambulatory - EENT Eyes: EOM intact ENT: clear oral mucosa Lymph node exam: negative cervical - Neck Neck: normal ROM - Respiratory Respiratory effort: Positive: normal Respiratory: bilateral: CTA - Cardiovascular Heart Sounds: Present: S1 & S2 Extremities: No edema - Gastrointestinal General gastrointestinal: Present: soft, non-tender Rectal Exam: deferred - Genitourinary Male genitourinary: Present: deferred - Integumentary Integumentary: warm - Musculoskeletal Musculoskeletal: strength equal bilaterally - Neurologic Neurologic: moves all extremities - Psychiatric Psychiatric: appropriate mood/affect - Labs Lab Results: Laboratory Results - last 24 hr 10/29/18 10/29/18 10/29/18 08:16 08:42 08:42 PT 12.9 INR 0.92 Sodium 138 Potassium 4.6 Chloride 101.9 Carbon Dioxide 28 Anion Gap 13 BUN 10 Creatinine 0.7 L Estimated GFR > 60 BUN/Creatinine Ratio 14 Glucose 135 H POC Glucose 119 H Calcium 9.1 10/29/18 10/29/18 10/29/18 13:14 16:28 21:28 PT INR Sodium Potassium Chloride Carbon Dioxide Anion Gap BUN Creatinine Estimated GFR BUN/Creatinine Ratio Glucose POC Glucose 121 H 157 H 90 Calcium Medications & Allergies - Medications Allergies/Adverse Reactions: Allergies No Known Allergies Allergy (Verified 10/28/18 00:03) Home Medications: Home Medications Medication Instructions Recorded Confirmed Last Taken Type Lisinopril [Zestril] 10 mg PO DAILY 10/28/18 10/28/18 10/27/18 History amLODIPine [Norvasc] 5 mg PO DAILY 10/28/18 10/28/18 10/27/18 History metFORMIN [Glucophage] 500 mg PO BID 10/28/18 10/28/18 10/27/18 History Active Medications: Generic Name Dose Route Start Last Admin Trade Name Freq PRN Reason Stop Dose Admin Acetaminophen 650 mg 10/28/18 00:05 Tylenol PO Q4H PRN Pain MILD(1-3)/Fever >100.5/PAT Amlodipine Besylate 5 mg 10/28/18 10:00 10/29/18 10:45 Norvasc PO Not Given DAILY [facility] Apixaban 5 mg 10/30/18 10:00 Eliquis PO Q12HR [facility] Protocol Dextrose 50 ml 10/28/18 00:16 D50w (25gm) Syringe IV PRN PRN Hypoglycemia Insulin Human Lispro 0 unit 10/28/18 07:30 10/29/18 22:35 Humalog SUB-Q Not Given ACHS [facility] Protocol Lisinopril 10 mg 10/28/18 10:00 10/29/18 10:45 Zestril PO Not Given DAILY [facility] Metoprolol Succinate 50 mg 10/29/18 12:00 10/29/18 18:45 Toprol Xl PO 50 mg QDAY JOHANN Administration Ondansetron HCl 4 mg 10/28/18 00:05 Zofran IV Q8H PRN Nausea And Vomiting Oxycodone/Acetaminophen 1 tab 10/28/18 00:05 Percocet 5/325 PO Q6H PRN Pain, Moderate (4-6) Sodium Chloride 10 ml 10/28/18 10:00 10/29/18 22:39 Sodium Chloride Flush Syringe 10 Ml IV 10 ml BID JOHANN Administration Sodium Chloride 10 ml 10/28/18 00:05 Sodium Chloride Flush Syringe 10 Ml IV PRN PRN LINE FLUSH
[2018-10-30] MEDS: HumaLOG SUB-Q SCH ×3 (08:00→16:30)
[2018-10-30] MEDS: ZESTRIL PO SCH (09:34)
[2018-10-30] MEDS: NORVASC PO SCH (09:34)
[2018-10-30] MEDS: TOPROL XL PO SCH (09:35)
[2018-10-30] MEDS: SODIUM CHLORIDE FLUSH SYRINGE 10 ML IV SCH (09:35)
[2018-10-30] MEDS ORDERED: ELIQUIS PO SCH (10:00)
[2018-10-30 13:05] VITALS: BP 121/72
--- NOTE | 2018-10-30 13:56 | Progress Note ---
Assessment and Plan Paroxysmal Atrial Fibrillation Normal LVEF on metoprolol for suppression. initiated on eliquis for oral anticoagulation. 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 Subjective Date of service: 10/30/18 Principal diagnosis: liver and lung lesion Interval history: Patient is sitting up in bed. He denies palpitations. Stable sinus rhythm on telemetry strips. Objective Vital Signs Temp Pulse Pulse Resp BP Pulse Ox 10/30/18 13:04 98.7 F 18 121/72 10/30/18 09:35 62 126/70 10/30/18 09:34 62 126/70 10/30/18 09:00 62 20 100 10/30/18 08:12 97.7 F 18 124/72 10/30/18 05:04 97.6 F 59 L 20 134/75 96 10/30/18 02:00 61 10/29/18 23:41 98.3 F 61 20 111/70 96 10/29/18 21:42 94 10/29/18 21:00 70 18 10/29/18 19:50 97.8 F 70 20 144/78 92 10/29/18 18:00 78 10/29/18 16:27 97.7 F 18 124/74 - Physical Examination General: No Apparent Distress HEENT: Positive: PERRL Neck: Positive: neck supple Cardiac: Positive: Reg Rate and Rhythm Lungs: Positive: Decreased Breath Sounds Neuro: Positive: Grossly Intact Abdomen: Positive: Soft Extremities: Present: normal
--- NOTE | 2018-10-30 15:31 | Discharge Summary ---
Providers - Providers Date of Admission: 10/27/18 23:52 Date of discharge: 10/30/18 Attending physician: SUNNY KEITA 10/27/18 23:27 Consult to Physician [CONS] Urgent Comment: Consulting Provider: JAIME VARGAS Physician Instructions: Reason For Exam: afib rvr, tachy 10/28/18 00:05 Consult to Physician [CONS] Routine Comment: Consulting Provider: ZOHRA NEWTON Physician Instructions: Reason For Exam: lung cancer with mets 10/28/18 08:45 Consult to Physician [CONS] Routine Comment: Consulting Provider: MELANIE GAVIN Physician Instructions: Reason For Exam: liver biopsy eval Primary care physician: Francois LEWIS MD Hospitalization Condition: Stable Pertinent studies: CT head w/wo contrast: Cranial CT scan within normal limits. CT abdomen/pelvis w contrast: Four suspicious liver masses are identified consistent with metastatic disease. Moderate diffuse fatty infiltration of the liver parenchyma. Diffuse sclerosis of the L3 and L5 vertebral bodies suggesting metastatic disease. Pathologic fracture of the left L5 transverse process. No acute inflammatory process is appreciated in the abdomen. CTA chest: No evidence of pulmonary embolus. Spiculated soft tissue masses seen in the left upper lobe as well as left hilar adenopathy and masses in the liver as described. Multiple small peripheral noncalcified nodules seen scattered in both lungs as described suggesting additional metastasis to the right and left lungs. Primary malignancy in the lung is suspected with metastatic disease to left hilar lymph nodes and to the liver. Fatty infiltration of the liver. Atherosclerosis coronary arteries. CXR: Hospital course: Brief history: 63-year-old male with a past medical history of diabetes, hypertension, and plaque psoriasis who apparently went to his PMDs office for a checkup and medical refill and was noted to be in A. fib rate 165 (see ekg on chart and office notes). He was send to ER to be admitted for workup of new onset A. fib with RVR. PMD Dr. 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 CTA chest in the Er showed b/l multiple lung and hepatic nodules, oncology consulted. s/p liver biopsy 10/30/18 - initial result showing presence of malignant cell. Patient will do further f/u outpt, result was discussed with the patient along with the RN, made apt with Dr. Fontaine for outpt PORT-a-cath placement. He was then discharged with outpt followup in stable condition. Discharge diagnosis and management: New onset paroxysmal A. fib, NSR now - Normal LVEF on 2d echo, consulted cardiology - did not start AC as NSR now and pending biopsy, - Per cardiology CHADSVASc = 2; therefore, will require anticoagulation - Started toprol XL 50 mg po daily - Started OAC with eliquis after lung biopsy, will do further f/u with cardiology as outpt Lung mass with metastases most likely cancer - incidental finding - Consulted oncology, held aspirin/AC pending biopsy - s/p liver biopsy 10/30/18 - initial result showing presence of malignant cell - patient will do further f/u outpt, result was discussed with the patient along with the RN - made apt with Dr. Fontaine for outpt PORT-a-cath placement Hypertension, cont home meds, stable Diabetes type 2, consistent carb diet, SSI Psoriasis, no acute issue DVT prophylaxis, eliquis Disposition: TO HOME OR SELFCARE Time spent for discharge: 34 minutes Core Measure Documentation - Palliative Care Palliative Care/ Comfort Measures: Not Applicable - Core Measures Any of the following diagnoses?: none Exam - Physical Exam Narrative exam: General appearance: Present: no acute distress, well-nourished - EENT Eyes: PERRL, EOM intact ENT: hearing intact, clear oral mucosa Ears: bilateral: normal - Neck Neck: supple, normal ROM - Respiratory Respiratory effort: normal Respiratory: bilateral: CTA - Cardiovascular Rhythm: regular Heart Sounds: Present: S1 & S2. Absent: gallop, rub Extremities: pulses intact, No edema, normal color, Full ROM - Gastrointestinal General gastrointestinal: Present: soft, non-tender, non-distended, normal bowel sounds - Integumentary Integumentary: clear, warm, dry - Musculoskeletal Musculoskeletal: 1, strength equal bilaterally - Neurologic Neurologic: moves all extremities - Psychiatric Psychiatric: memory intact, appropriate mood/affect, intact judgment & insight - Constitutional Vitals: Temp Pulse Resp BP Pulse Ox 98.7 F 62 18 121/72 100 10/30/18 13:04 10/30/18 09:35 10/30/18 13:04 10/30/18 13:04 10/30/18 09:00 Plan Activity: advance as tolerated, avoid flexion Weight Bearing Status: Non-Weight Bearing Diet: regular Follow up with: Pedro LEWIS MD [Primary Care Provider] - 7 Days JAIME VARGAS MD [Staff Physician] - 7 Days ELLA FONTAINE DO [Staff Physician] - 7 Days ZOHRA NEWTON MD [Staff Physician] - 7 Days Prescriptions: Apixaban [Eliquis] 5 mg PO Q12HR #60 tablet Metoprolol Xl [Metoprolol SUCCINATE ER TAB] 50 mg PO QDAY #30 tablet
== END 2018-10-30 17:35 | disposition home or self-care (01) | DRG 309 ==
LOC: ED 19:06 → 4A 23:52
PROVIDERS: ADMIT Internal Medicine; ATTEND Internal Medicine
PROC: 0FB23ZX Excision of Left Lobe Liver, Percutaneous Approach, Diagnostic (ICD-10-PCS; principal; 2018-10-29)
PROC: BF251ZZ Computerized Tomography (CT Scan) of Liver using Low Osmolar Contrast (ICD-10-PCS; 2018-10-29)
DX: I48.0 Paroxysmal atrial fibrillation (principal); C34.90 Malignant neoplasm of unspecified part of unspecified bronchus or lung; C78.7 Secondary malignant neoplasm of liver and intrahepatic bile duct; C78.1 Secondary malignant neoplasm of mediastinum; I10 Essential (primary) hypertension; L40.0 Psoriasis vulgaris; E11.9 Type 2 diabetes mellitus without complications; Z82.49 Family history of ischemic heart disease and other diseases of the circulatory system; Z87.891 Personal history of nicotine dependence; Z79.84 Long term (current) use of oral hypoglycemic drugs
CPT/HCPCS: 36415; 47000; 70470; 71275; 74177; 77012; 80048; 80053; 82106; 82378; 82550; 82553; 82962; 83735; 83880; 84100; 84153; 84443; 84484; 85025; 85379; 85610; 86301; 88172; 88173; 88307; 88333; 88334; 88341; 88342; 93005; 93010; 93306; G0378; J1650; J2250; J3010; J7040; Q9967

== ENCOUNTER 2018-11-27 07:49 | Day surgery (SDC) | payer BC ==
[~2018-11-27 07:49] MED LIST: ceFAZolin 2 GM in NACL 0.9% 100 ML IV ONE
[2018-11-27] MEDS ORDERED: ANCEF/STERILE WATER 2 GM/20 ML 2 GM/20 ML SYRINGE IV SCH (08:00)
--- NOTE | 2018-11-27 08:53 | Anesthesia Consultation ---
Anesthesia Consult and Med Hx - Airway Anesthetic Teeth Evaluation: Good ROM Head & Neck: Adequate Mental/Hyoid Distance: Adequate Mallampati Class: Class II Intubation Access Assessment: Good - Pulmonary Exam CTA: Yes - Cardiac Exam Cardiac Exam: RRR - Pre-Operative Health Status ASA Pre-Surgery Classification: ASA2 Proposed Anesthetic Plan: General - Pulmonary Hx Smoking: (SINCE TEENS; QUIT BETWEEN [id number]) - Cardiovascular System Hx Hypertension: Yes (2008) - Central Nervous System Hx Psychiatric Problems: No - Endocrine Hx Liver Disease: Yes (CA LESION) Hx Non-Insulin Dependent Diabetes: Yes (pre diabetes on metformin) - Other Systems Hx Alcohol Use: No Hx Cancer: Yes - Additional Comments Anesthesia Medical History Comments: Pt with HTN , DM for GA
--- NOTE | 2018-11-27 08:55 | Anesthesia Day of Surgery ---
Anesthesia Day of Surgery - Day of Surgery Patient Examined: Yes Patient H&P Reviewed: Yes Patient is NPO: Yes
[2018-11-27] MEDS ORDERED: ZOFRAN IV PRN (09:00)
[2018-11-27] MEDS ORDERED: DILAUDID IV PRN (09:00)
[2018-11-27] MEDS ORDERED: LACTATED RINGERS 1,000 ML ONE (10:06)
[2018-11-27] MEDS ORDERED: LACTATED RINGERS 1,000 ML IV SCH (10:30)
[2018-11-27] MEDS ORDERED: MARCAINE 0.25% INFILTRATI ONE ×2 (13:58→14:50)
[2018-11-27] MEDS ORDERED: XYLOCAINE 1% 20 mL ONE (13:58)
[2018-11-27] MEDS ORDERED: NACL 0.9% 100 ML ONE (13:59)
[2018-11-27] MEDS ORDERED: HEPARIN 10,000 UNITS/10 ML ONE (13:59)
[2018-11-27] MEDS ORDERED: XYLOCAINE MPF 2% ONE (14:09)
[2018-11-27] MEDS ORDERED: SUBLIMAZE ONE (14:09)
[2018-11-27] MEDS ORDERED: DIPRIVAN 10 MG/ML IV ONE (14:09)
[2018-11-27] MEDS ORDERED: XYLOCAINE 1% 20 mL INFILTRATI ONE (14:51)
[2018-11-27] MEDS ORDERED: HEPARIN 10,000 UNITS/10 ML IV ONE (14:52)
[2018-11-27] MEDS ORDERED: NACL 0.9% IR ONE (14:52)
[2018-11-27] MEDS ORDERED: NACL 0.9% IV ONE (14:52)
[2018-11-27] MEDS ORDERED: ZOFRAN ONE (15:07)
--- NOTE | 2018-11-27 15:24 | Short Stay Summary ---
Short Stay Documentation Date of service: 11/27/18 - History Principal diagnosis: lung ca with metastasis H&P: obtained from office - Allergies and Medications Current Medications: Allergies No Known Allergies Allergy (Verified 11/26/18 14:12) Home Medications Medication Instructions Recorded Confirmed Last Taken Type Lisinopril [Zestril] 10 mg PO DAILY 10/28/18 11/27/18 11/26/18 09:00 History amLODIPine [Norvasc] 5 mg PO DAILY 10/28/18 11/27/18 11/26/18 09:00 History metFORMIN [Glucophage] 500 mg PO BID 10/28/18 11/27/18 11/26/18 21:00 History Apixaban [Eliquis] 5 mg PO Q12HR #60 tablet 10/30/18 11/27/18 11/25/18 08:00 Rx Metoprolol Xl [Metoprolol 50 mg PO QDAY #30 tablet 10/30/18 11/27/18 11/26/18 09:00 Rx SUCCINATE ER TAB] Aspirin EC [Aspirin Enteric Coated 81 mg PO QDAY 11/26/18 11/27/18 11/26/18 09:00 History TAB] Glucosamine/Chondro Pavon A 1 each PO DAILY 11/26/18 11/27/18 11/26/18 09:00 History [Glucosamine-Chondroitin Tab] Multivitamin Tab [Multiple Vitamin 1 each PO QDAY 11/26/18 11/27/18 11/26/18 09:00 History TAB (Theragran)] Active Medications Hydromorphone HCl (Dilaudid) 0.25 mg IV Q10MIN PRN PRN Reason: Pain, Moderate (4-6) Stop: 11/27/18 17:00 Cefazolin Sodium (Ancef/Sterile Water 2 Gm/20 Ml) 2 gm in 20 mls @ 80 mls/hr IV PREOP JOHANN Stop: 11/27/18 23:59 Lactated Ringer's (Lactated Ringers) 1,000 mls @ 75 mls/hr IV DIRECT JOHANN Last Admin: 11/27/18 10:15 Dose: 75 mls/hr Documented by: Ondansetron HCl (Zofran) 4 mg IV ONCE PRN PRN Reason: Nausea And Vomiting Stop: 11/27/18 17:00 - Brief post op/procedure progress note Date of procedure: 11/27/18 Pre-op diagnosis: lung ca with metastasis Post-op diagnosis: same Procedure: left subclavian port a cath placement with mindray ultrasound guidance, fluoroscopy Anesthesia: GETA, local Findings: good placement of port without PTX on post op CXR Surgeon: ELLA FONTAINE Estimated blood loss: minimal Pathology: none Condition: stable - Hospital course Hospital course: Pt observed in PACU and discharged to home in stable condition once criteria met - Disposition Condition at discharge: Good Disposition: [id number] TO HOME OR SELFCARE Short Stay Discharge Plan Activity: other (no driving if taking prescription pain medications) Diet: diabetic Wound: open to air, per your surgeon's advice Additional Instructions: SEE PRINTED DISCHARGE INSTRUCTIONS Follow up with: Pedro LEWIS MD [Primary Care Provider] - 7 Days ELLA FONTAINE DO [Staff Physician] - 14 Days Prescriptions: HYDROcodone/APAP 5-325 [Grandin 5/325] 1 each PO Q6HR PRN #20 tablet PRN Reason: Pain
[2018-11-27 15:57] VITALS: BP 126/75
--- NOTE | 2018-11-27 17:40 | Post Anesthesia Evaluation ---
- Post Anesthesia Evaluation Patient Participated: Yes Airway Patent: Yes Stable Respiratory Function: Yes Nausea/Vomiting: No Temp > 96.8F: Yes Pain Manageable: Yes Adequeate Hydration: Yes Anesthesia Complications: No Block Receding Appropriately: Not Applicable Patient on Ventilator: No
--- NOTE | 2018-11-28 07:27 | Fluoroscopy Report ---
FLUOROSCOPY CENTRAL VENOUS DEVICE PLACEMENT HISTORY: Lung cancer A left subclavian Ialqix-b-Kgmu has been placed which terminates in the superior right atrium. No evidence for pneumothorax. Mild left hilar prominence is suspected. Otherwise the lungs are clear. Normal heart size. IMPRESSION: Left Wavmgy-l-Okoy placement. No pneumothorax.
--- NOTE | 2018-11-28 09:42 | Operative Report ---
PREOPERATIVE DIAGNOSIS: Metastatic lung cancer. POSTOPERATIVE DIAGNOSIS: Metastatic lung cancer. PROCEDURE: Left subclavian Port-A-Cath placement with Mindray ultrasound guidance, fluoroscopy. ANESTHESIA: General endotracheal anesthesia, local. FINDINGS: Good placement of port without pneumothorax on postop chest x-ray. SURGEON: Elaine Chaudhari D.O. ESTIMATED BLOOD LOSS: Minimal. PATHOLOGY: None. CONDITION AND DISPOSITION: The patient is stable to PACU. HISTORY OF PRESENT ILLNESS AND INDICATION: The patient is a 63-year-old male, who was recently diagnosed with lung cancer with metastasis to the liver. He sees Dr. Bhatti for Oncology as an outpatient and is deemed a candidate for chemotherapy. He presented to the surgery clinic for evaluation for port placement. All risks, benefits, and alternatives to surgery were discussed with the patient. Questions answered. Consent was obtained. The patient was instructed to discontinue his Eliquis 48 hours prior to surgery. PROCEDURE IN DETAIL: The patient was identified in the preoperative area, taken back to the operating room, and placed on the operating table in supine position. After anesthesia was induced, bilateral arms were tucked with all bony prominences padded and a shoulder roll was placed across the shoulder blades. The bilateral upper chest and neck were prepped and draped in the usual sterile fashion and timeout performed. Using Mindray ultrasound guidance, the left subclavian vein was identified and local anesthetic was infiltrated into the intended puncture site. The subclavian vein was accessed on the first stick. There was return of dark red nonpulsatile blood. The wire was threaded without resistance and position confirmed using fluoroscopy. The needle was removed and the wire secured to the drapes using a hemostat. Local anesthetic was infiltrated to the left upper chest at the intended incision site and a 4-cm transverse incision was made in the left upper chest using a 15 blade. Dissection was carried down through the skin and subcutaneous tissue using Bovie electrocautery until the prepectoral fascia was identified. A pocket was then created for the port using a combination of blunt dissection and electrocautery. Once the subcutaneous pocket was formed, it was checked for hemostasis, which was carefully ensured. The catheter was then threaded from the pocket to the wire and then a breakaway catheter sheath was inserted over the wire and advanced into the vein under direct visualization of fluoroscopy. The dilator and wire were then removed and the catheter threaded through the sheath and the breakaway catheter removed in the usual fashion. Using continuous fluoroscopy, the catheter was pulled back until the tip was visualized in the right atrium. There was no ectopy on the telephone diaphragm assembler. The port was then cut to size and assembled in the usual fashion. The port was tested with heparinized saline and there was good return of blood and the port flushed easily. The port was then sutured to the prepectoral fascia in two locations using 2-0 Vicryl interrupted sutures. The port was instilled with 3000 units of heparin. The pocket was then irrigated with saline and once again checked for hemostasis, which was carefully ensured. The deep dermal layer was then closed with 3-0 Vicryl interrupted sutures and the skin incisions were closed with 4-0 Monocryl subcuticular stitches and skin glue. A postoperative chest x-ray showed the port in good positioning without kinks and no pneumothorax. At the end of the case, all sponge, instrument, sharp counts were correct x 2. The patient was awoken from anesthesia and taken to PACU in stable condition. JOB# [id number] PABLO/BRODERICK
== END 2018-11-27 16:55 | disposition home or self-care (01) ==
LOC: OR 07:49
PROVIDERS: ATTEND Surgery
DX: C34.90 Malignant neoplasm of unspecified part of unspecified bronchus or lung (principal); C78.7 Secondary malignant neoplasm of liver and intrahepatic bile duct; E11.9 Type 2 diabetes mellitus without complications; I10 Essential (primary) hypertension; I48.91 Unspecified atrial fibrillation; M19.90 Unspecified osteoarthritis, unspecified site; Z79.82 Long term (current) use of aspirin; Z79.84 Long term (current) use of oral hypoglycemic drugs; Z79.899 Other long term (current) drug therapy; Z87.891 Personal history of nicotine dependence; Z98.890 Other specified postprocedural states; Z82.49 Family history of ischemic heart disease and other diseases of the circulatory system; Z86.2 Personal history of diseases of the blood and blood-forming organs and certain disorders involving the immune mechanism
CPT/HCPCS: 36561; 77001; 82962; C1788; J0690; J1644; J2405; J2704; J3010; J7120

== ENCOUNTER 2019-03-13 06:10 | Outpatient (CLI) | payer BC ==
[2019-03-13 07:00] LABS: Blood Urea Nitrogen 14 mg/dL (9-20)
--- NOTE | 2019-03-13 10:47 | Cat Scan Report ---
CT of the chest with contrast INDICATION: Restaging of lung carcinoma COMPARISON: Chest CTA and abdominal CT from 10/2018 FINDINGS: Port-A-Cath is in place on the left. The more medially located left upper lobe lung mass ad jacent to the mediastinum today measures 2.2 x 2.2 cm. the slightly more inferior mass described prev iously today measures 2 x 1.4 cm so these have diminished slightly in size. Associated left hilar viri nopathy is also improved with the largest node now measuring 2.3 x 2 cm. There are no new areas of hi lar or mediastinal adenopathy. No effusions are seen. The multiple pulmonary metastases are again see n. The prior nodules are essentially unchanged in size but the nodules are now more numerous. Bone wi ndows show sclerotic metastatic disease to the manubrium as well as the T3 vertebral body. There are healed nonpathologic left rib fractures as well. CT of the abdomen again shows extensive fatty infiltration of the liver. The liver metastases have in creased in size. The 3 left hepatic metastases now measure 7, 5 and 4 cm in greatest diameter with th e right hepatic metastasis now measuring 3 cm in diameter. No new metastases are seen however. The sp ayesha, pancreas, adrenal glands and kidneys show no abnormalities. No definite gallbladder or biliary tree abnormality. No fluid or adenopathy in the upper abdomen. CT of the pelvis shows no pelvic or inguinal adenopathy. Prostate is not enlarged. No diverticulosis or diverticulitis. Appendix is seen and is normal. Sclerosis of L3 and L5 is again seen. There are no pathologic fractures through both transverse processes of L5. No compression fractures seen however. IMPRESSION: The primary left lung carcinoma appears slightly improved. The hepatic metastasis have in creased in size and there are increasing pulmonary nodules as well. Automated exposure control was utilized to diminish radiation dose. Signer Name: Sav Jenkins MD Signed: 03/13/2019 10:43 AM Workstation Name: [id number]
== END 2019-03-13 06:11 | disposition home or self-care (01) ==
LOC: CT 06:10
PROVIDERS: ATTEND Internal Medicine Hematology & Oncology
DX: C79.51 Secondary malignant neoplasm of bone (principal); C34.00 Malignant neoplasm of unspecified main bronchus; C78.7 Secondary malignant neoplasm of liver and intrahepatic bile duct; C78.00 Secondary malignant neoplasm of unspecified lung; I10 Essential (primary) hypertension; I48.91 Unspecified atrial fibrillation; M19.90 Unspecified osteoarthritis, unspecified site; Z79.899 Other long term (current) drug therapy
CPT/HCPCS: 36415; 71260; 74177; 82565; 84520; Q9967

== ENCOUNTER 2019-04-13 10:11 | Outpatient (CLI) | payer BC ==
--- NOTE | 2019-04-13 11:58 | Vascular Lab Report ---
DUPLEX DOPPLER LOWER EXTREMITY VEINS, RIGHT INDICATION: Right lower extremity edema for 2 weeks. TECHNIQUE: Duplex doppler imaging was performed through the veins of the right lower extremity using venous compression and other maneuvers. COMPARISON: No relevant prior imaging study available. FINDINGS: Right Common femoral vein: Negative. Right Superficial femoral vein: Negative. Right Popliteal vein: Negative. Right Calf veins: Negative. Additional findings: There appears to be a popliteal cyst measuring 2.9 x 1.0 cm.. IMPRESSION: No sonographic evidence for DVT in the right lower extremity. Probable popliteal cyst. Signer Name: Albert York Jr, MD Signed: 04/13/2019 11:53 AM Workstation Name: [id number]
== END 2019-04-13 10:12 | disposition home or self-care (01) ==
LOC: VAS 10:11
PROVIDERS: ATTEND Internal Medicine Hematology & Oncology
DX: C34.00 Malignant neoplasm of unspecified main bronchus (principal); I10 Essential (primary) hypertension; E11.9 Type 2 diabetes mellitus without complications

== ENCOUNTER 2019-08-20 08:37 | Outpatient (CLI) | payer BC ==
--- NOTE | 2019-08-20 12:49 | PET Report ---
PET/CT HISTORY: C34.00. Staging of left lung cancer TECHNIQUE: The patient's fasting blood glucose was 134. The patient weighed 205 lbs. The patient w as injected with 14.14 mCi of FDG in the right hand at 0922 hours and imaging was started at 1007 [address] rs. The patient was imaged from the skull base to the thighs. All CT scans at this location are perf ormed using CT dose reduction for ALARA by means of automated exposure control. Images were reviewed on a workstation. COMPARISON: CT chest abdomen and pelvis dated 03/13/2019. No previous PET/CT at this facility. FINDINGS: IMAGED BRAIN: [Physiologic FDG uptake] NECK: [Physiologic FDG uptake] MEDIASTINUM: [There is increased uptake in a solitary left hilar lymph node with max SUV measuring 1 4.5. There were a few additional enlarged left hilar lymph nodes on the previous CT which have resolv ed on the noncontrast PET/CT images.] LUNGS: [Soft tissue density mass in the medial left upper lobe has decreased in size from 2.7 x 2.5 cm to 2.0 x 2.1 cm. Max SUV in this mass measures 3.3. There are numerous tiny millimetric pulmonary nodules in both lungs which are too small to characterize on PET. These nodules appear stable in numb er but decreased in size by approximately 50% since the previous CT.] HEPATOBILIARY: [Physiologic FDG uptake]. On the previous CT at least four large liver masses were de monstrated. Only one subtle left hepatic lobe lesion measuring 3.9 cm is noted on today's PET/CT. The se masses are hypometabolic on PET imaging. Max liver SUV measures 5.5. PANCREAS: [Physiologic FDG uptake SPLEEN: [Physiologic FDG uptake] KIDNEYS/BLADDER: [Physiologic FDG uptake] ADRENAL GLANDS: [Physiologic FDG uptake] GI/MESENTERY: [Physiologic FDG uptake] PELVIC VISCERA: [Physiologic FDG uptake] ABDOMINAL LYMPH NODES: [Physiologic FDG uptake] OSSEOUS STRUCTURES: [There is diffuse sclerosis of the manubrium, T2, L3 and L5 consistent with bony metastases. There is increased uptake along the margins of the manubrium with max SUV measuring 16.2 . Max SUV in the T2 lesion measures 3.5. Uptake in L3 and L5 is hypometabolic with max SUV measuring 2.1 and 1.6 respectively.] ADDITIONAL FINDINGS: [None] IMPRESSION: A positive response to therapy is demonstrated since the CT chest abdomen pelvis dated 03/13/2019. Th e left upper lobe mass has decreased in size as outlined above but remains mildly hypermetabolic. The re are numerous tiny, millimetric pulmonary nodules which have decreased in size by approximately 50% . There is a solitary hypermetabolic left hilar lymph node. Left hilar adenopathy has decreased other rolle. The previously described liver masses have decreased in size, number and metabolic activity. 4 bony lesions are identified including the manubrium, T2, L3 and L5 of which only to demonstrate hyper metabolic activity. Signer Name: Albert York Jr, MD Signed: 08/20/2019 12:45 PM Workstation Name: [id number]
== END 2019-08-20 08:38 | disposition home or self-care (01) ==
LOC: PET 08:37
PROVIDERS: ATTEND Internal Medicine Hematology & Oncology
DX: K76.9 Liver disease, unspecified (principal); R91.1 Solitary pulmonary nodule; C34.00 Malignant neoplasm of unspecified main bronchus
CPT/HCPCS: 78815; 82962; A9552